=== PATIENT | female | born 1950 ===

== ENCOUNTER 2024-05-26 07:30 | Day surgery (SDC) | payer OTHER ==
[2024-05-19 08:13] LABS: PH,URINE 5.5 (5.0-8.0); URINE APPEARANCE Clear; URINE BILIRRUBIN Negative (NEGATIVE); URINE COLOR Yellow; URINE GLUCOSE Negative (NEGATIVE); URINE KETONE Negative (NEGATIVE); URINE LEUKOCYTE Small; URINE NITRATE Negative; URINE PROTEIN Negative (NEGATIVE); URINE UROBILINOGEN 0.2 E.U./dl
[2024-05-19 08:14] LABS: URINE BACTERIA 31.8 uL (0.0-1933); URINE EPITHELIAL CELLS 17.7 uL (0.0-38.8); URINE RBC 19.5 uL (0.0-20.8); URINE WBC 43.6 uL (0.0-23.2)
[2024-05-19 08:17] LABS: HEMOGLOBIN 12.9 g/dL (12.0-15.00); MEAN CELL VOLUME 92.2 fL (80.00-100.00); MEAN CORPUSCULAR HEMOGLOBIN 30.4 pg (27.00-32.0); PLATELET COUNT 233 K/uL (150-450); RED BLOOD COUNT 4.24 M/uL (4.00-6.00); RED CELL DISTRIBUTION WIDTH 13.3 % (11.5-14.5)
[2024-05-19 08:18] LABS: URINE BLOOD TRACES
[2024-05-19 08:46] VITALS: BP 160/81
[2024-05-19 08:55] LABS: ALBUMIN 3.9 gm/dL (3.4-5.0); BILIRUBIN TOTAL 1.53 mg/dL (0.3-1.2); CALCIUM 9.4 mg/dL (8.5-10.1); CREATININE SERUM 0.81 mg/dL (0.55-1.02); GFR 69.5; GLOBULINA 3.4 G/DL (2.4-3.5); POTASSIUM 4.38 mEq/L (3.5-5.1); TOTAL PROTEIN 7.3 gm/dL (6.4-8.2)
[2024-05-19 08:58] LABS: INR 0.99; PARTIAL THROMBOPLASTIN TIME 23.9 SECONDS (22.0-34.0); PROTHROMBIN TIME 10.8 SECONDS (9.0-11.5)
[~2024-05-26] VITALS: Ht 152.4 cm; Wt 59.0 kg
[~2024-05-26 07:30] MED LIST: TOPROL XL25 M1 PO
[2024-05-26] MEDS ORDERED: BUPIVACAINE HCL/MPF 0.5% 30ML VIAL ONE (12:25)
[2024-05-26] MEDS ORDERED: CEFAZOLIN SODIUM 1,000 MG VIAL ONE (12:26)
[2024-05-26] MEDS ORDERED: KETOROLAC TROMETHAMINE 30 MG VIAL IM STA (12:57)
[2024-05-26] MEDS ORDERED: KETOROLAC TROMETHAMINE 30 MG VIAL IU STA (12:58)
[2024-05-26] MEDS ORDERED: METHYLPREDNISOLONE ACETATE 80 MG/ML VIAL ONE (13:23)
[2024-05-26] MEDS ORDERED: PERCOCET 5-3251 EACH PO (13:35)
[2024-05-26] MEDS ORDERED: NABUMETONE500 MG PO (13:36)
== END 2024-05-26 18:30 | disposition home or self-care (01) ==
LOC: CIR.AMB 07:30
PROVIDERS: ATTEND Orthopaedic Surgery
DX: S83.201A Bucket-handle tear of unspecified meniscus, current injury, left knee, initial encounter (principal); M67.52 Plica syndrome, left knee; M22.42 Chondromalacia patellae, left knee; M65.862 Other synovitis and tenosynovitis, left lower leg; I10 Essential (primary) hypertension